=== PATIENT | female | born 1965 | race Two or more races ===

== ENCOUNTER 2024-10-16 15:05 | Emergency (ER) | payer OTHER ==
[~2024-10-16] VITALS: Ht 154.9 cm; Wt 90.7 kg
[2024-10-16 17:46] LABS: HEMATOCRIT 42.8 % (36.0-45.00); HEMOGLOBIN 14.2 g/dL (12.0-15.00); MEAN CELL VOLUME 88.1 fL (80.00-100.00); MEAN CORPUSCULAR HEMOGLOBIN 29.3 pg (27.00-32.0); MEAN CORPUSCULAR HGB CONC 33.2 g/dl (32.0-36.0); PLATELET COUNT 295 K/uL (150-450); RED BLOOD COUNT 4.85 M/uL (4.00-6.00); RED CELL DISTRIBUTION WIDTH 13.6 % (11.5-14.5)
[2024-10-16] MEDS ORDERED: levoFLOXacin IN DEXTROSE 5 % 5 MG/ML PIGGYBAG IV STA (18:17)
[2024-10-16 19:25] LABS: CALCIUM 9.6 mg/dL (8.5-10.1); CREATININE SERUM 0.94 mg/dL (0.55-1.02); GFR 61.38; POTASSIUM 4.03 mEq/L (3.5-5.1)
[2024-10-16 20:11] LABS: URINE APPEARANCE Clear; URINE BILIRRUBIN Negative (NEGATIVE); URINE BLOOD Negative; URINE COLOR Yellow; URINE GLUCOSE Negative (NEGATIVE); URINE KETONE Trace (NEGATIVE); URINE LEUKOCYTE Small; URINE NITRATE Negative; URINE PROTEIN Negative (NEGATIVE)
[2024-10-16 20:14] LABS: URINE BACTERIA 391.6 uL (0.0-1933); URINE EPITHELIAL CELLS 15.8 uL (0.0-38.8); URINE RBC 19.2 uL (0.0-20.8); URINE WBC 15.9 uL (0.0-23.2)
[2024-10-16 20:33] LABS: URINE CAST 0.58 uL (0.0-1.40); URINE CRYSTALS FEW /HPF
[2024-10-16 20:46] LABS: ABG PH 7.395 (7.35-7.45); ABG pCO2 38.2 mmHg (35-45); BASE EXCESS -1.7 mmol/l; BICARBONATE 22.8 mmol/l (23-25); SaO2 96.5 %
[2024-10-16 21:20] LABS: allen test SATISFACTORY; o2 21 %; puncture site RADIAL RIGHT
== END 2024-10-16 22:15 | disposition home or self-care (01) ==
LOC: ER 15:08
PROVIDERS: General Practice
DX: R05.9 Cough, unspecified (principal); Z20.822 Contact with and (suspected) exposure to COVID-19